=== PATIENT | female | born 1960 | race Asian ===

== ENCOUNTER 2023-01-16 12:46 | Inpatient (IN) | payer OTHER ==
[2023-01-16 13:42] LABS: BASOPHILS ABSOLUTE AUTO 0.03 K/mm3 (0.00-0.23); BASOPHILS PERCENT AUTO 1 % (0-2); EOSINOPHILS ABSOLUTE AUTO 0.06 K/mm3 (0.00-0.68); EOSINOPHILS PERCENT AUTO 1 % (0-6); Hematocrit 40.4 % (33.0-51.0); Hemoglobin 13.4 g/dL (11.5-16.0); IMMATURE GRAN ABSOLUTE AUTO 0.01 K/mm3 (0.00-0.10); IMMATURE GRAN PERCENT AUTO 0 % (0-1); LYMPHOCYTES ABSOLUTE AUTO 1.53 K/mm3 (0.84-5.20); LYMPHOCYTES PERCENT AUTO 35 % (21-46); MONOCYTES ABSOLUTE AUTO 0.25 K/mm3 (0.16-1.47); MONOCYTES PERCENT AUTO 6 % (4-13); Mean Corpuscular HGB 30.7 pg (26.0-34.0); Mean Corpuscular HGB Conc 33.2 g/dL (31.5-36.5); Mean Corpuscular Volume 92 fL (80-100); NEUTROPHILS ABSOLUTE AUTO 2.52 K/mm3 (1.96-9.15); NEUTROPHILS PERCENT AUTO 57 % (41-73); Platelet Count 206 K/mm3 (150-400); RDW Coefficient Variation 13.2 % (11.7-14.2); RDW Standard Deviation 44.8 fL (35.1-46.3); Red Blood Cell Count 4.37 M/mm3 (3.80-5.20)
[2023-01-16 14:22] LABS: Albumin, Blood 3.9 g/dL (3.4-5.0); Albumin/Globulin Ratio 1.1 (0.8-1.8); Bilirubin, Total 0.3 mg/dL (0.1-1.0); Bun/Creatinine Ratio 15.4 (12.0-20.0); Calcium, Blood 8.7 mg/dL (8.5-10.1); Creatinine, Blood 0.72 mg/dL (0.40-1.00); Globulin, Blood 3.4 g/dL (2.2-4.0); Potassium, Blood 3.8 mmol/L (3.5-5.5); Total Protein, Blood 7.3 g/dL (6.4-8.2)
[2023-01-16 18:58] LABS: C-Reactive Protein, High Sens. 0.254 mg/L (0.000-3.000); Magnesium, Blood 2.3 mg/dL (1.6-2.4); Phosphorus, Blood 3.2 mg/dL (2.5-4.9); Thyroid Stimulating Hormone 2.07 uIU/mL (0.360-4.800)
--- NOTE | 2023-01-16 20:58 | NUR ---
PT CHART REVEIWED FOR ADMISSION
[2023-01-16 22:04] VITALS: BP 130/79
--- NOTE | 2023-01-17 04:15 | NUR ---
PATIENT A/OX4, UP WITH SBA WITHIN ROOM. ADMITTED FOR R/O BOTULISM EARLY THIS SHIFT. PATIENT REPORTS INCREASED WEAKNESS, FACIAL DROOPING AND STIFF NECK WITH DIFFICULTY SWALLOWING. CURRENTLY NPO PENDING ST EVALUATION. PATIENT VERY CONCERNED ABOUT TREATMENTS, TESTING AND MEDICATIONS. DID EVENTUALLY ALLOW IV FLUIDS ONCE SHE COULD LOOK AT THE BAG AND NEW EXACTLY WHAT SHE WAS TAKING. FALL PRECAUTIONS IN PLACE DUE TO WEAKNESS, PATIENT HAS BEEN CALLING APPROPRIATELY FOR ASSISTANCE. CONTINUOUS BIOX AT BEDSIDE TO MONITOR FOR RESPIRATORY DEPRESSION, PATIENT REMAINED >95% THOUGHOUT THE SHIFT ON RA.
[2023-01-17 05:22] VITALS: BP 132/73
[2023-01-17 07:31] VITALS: BP 137/84
[2023-01-17 10:58] LABS: BASOPHILS ABSOLUTE AUTO 0.04 K/mm3 (0.00-0.23); BASOPHILS PERCENT AUTO 1 % (0-2); EOSINOPHILS ABSOLUTE AUTO 0.08 K/mm3 (0.00-0.68); EOSINOPHILS PERCENT AUTO 2 % (0-6); Hematocrit 40.1 % (33.0-51.0); Hemoglobin 13.3 g/dL (11.5-16.0); IMMATURE GRAN ABSOLUTE AUTO 0.01 K/mm3 (0.00-0.10); IMMATURE GRAN PERCENT AUTO 0 % (0-1); LYMPHOCYTES ABSOLUTE AUTO 1.37 K/mm3 (0.84-5.20); LYMPHOCYTES PERCENT AUTO 34 % (21-46); MONOCYTES PERCENT AUTO 5 % (4-13); Mean Corpuscular HGB 31.1 pg (26.0-34.0); Mean Corpuscular HGB Conc 33.2 g/dL (31.5-36.5); Mean Corpuscular Volume 94 fL (80-100); NEUTROPHILS ABSOLUTE AUTO 2.39 K/mm3 (1.96-9.15); NEUTROPHILS PERCENT AUTO 58 % (41-73); Platelet Count 190 K/mm3 (150-400); RDW Coefficient Variation 13.2 % (11.7-14.2); RDW Standard Deviation 45.1 fL (35.1-46.3); Red Blood Cell Count 4.28 M/mm3 (3.80-5.20); White Blood Cell Count 4.09 K/mm3 (4.00-11.30)
[2023-01-17 11:46] LABS: Albumin, Blood 3.6 g/dL (3.4-5.0); Albumin/Globulin Ratio 1.2 (0.8-1.8); Bilirubin, Total 0.4 mg/dL (0.1-1.0); Calcium, Blood 7.9 mg/dL (8.5-10.1); Creatinine, Blood 0.67 mg/dL (0.40-1.00); Globulin, Blood 3.1 g/dL (2.2-4.0); Potassium, Blood 3.7 mmol/L (3.5-5.5); Total Protein, Blood 6.7 g/dL (6.4-8.2)
--- NOTE | 2023-01-17 15:46 | NUR ---
patient continues to dictate her care and orders, refusing to follow npo orders for very poor swallowing, dr mcdaniel aware, patient continues to swallow and understands the outcomes
--- NOTE | 2023-01-17 16:41 | NUR ---
palliative care rn in room with patient and spouse, polst being filled out per patient request before she agrees to take the antitoxin
--- NOTE | 2023-01-17 17:26 | NUR ---
Received call from project internVALORIE Abdul in Pt's room requesting PC to assist with POLST. Pt sitting on edge of bed upon arrival. Pt's spouse is at bedside. Pt confirms wishes to complete POLST and AD. Educated on life sustaining measures including risks and implication to CPR/Intubation. Pt requests DNR. Assisted with completing POLST. Educated on advanced directive. Educated on each section to complete and choices for life support and tube feedings. Pt completes forms. Chaplain Vincent and this RN witnesses AD. Dr Abdul signs POLST. Obtained copies of forms and sent to medical records. Provided original forms back to Pt and . Pt expresses appreciation and reports no other concerns at this time. Palliative Care will remain available
--- NOTE | 2023-01-17 18:10 | NUR ---
PATIENT AND TAKE RESPONSIBILEY FOR PATIENT NOT FOLLOWING NPO ORDERS, KEEPING HER BAG AT BEDSIDE, DENIED IGNITION DEVICES, ANTITOXIN FOR BOTULISM INFUSING NOW, VSS, NO IV IRRITATION, AT BEDSIDE, INFUSING AT 60 ML/HR. POLST FILLED OUT DNR, PATIENT CONITNUALLY WANT REASSURANCE, PATIENT AND SPOUSE EDUCATED BY RN, PHARMACY AND DR AZEVEDO ABOUT THE MEDICATION AND WHY SHE NEEDED. PATIENT TO STAY ANOTHER NIGHT, CHILDLIKE WITH TANTRUMS. CALL LIGHT WITH IN REACH, WILL RELAY TO PM RN
--- NOTE | 2023-01-18 05:08 | NUR ---
PT REFUSED LABS/VITALS/INTERVENTIONS UNTIL AFTER 0630 THIS MORNING. VSS DURING AND AFTER IV ANTITOXIN MEDICATION. CHECKED ON PATIENT INTERMITTENTLY, IV NS STILL RUNNING. FIRE SAFETY REVIEWED.
[2023-01-18 07:04] LABS: BASOPHILS ABSOLUTE AUTO 0.02 K/mm3 (0.00-0.23); BASOPHILS PERCENT AUTO 0 % (0-2); EOSINOPHILS ABSOLUTE AUTO 0.08 K/mm3 (0.00-0.68); EOSINOPHILS PERCENT AUTO 1 % (0-6); Hematocrit 40.5 % (33.0-51.0); Hemoglobin 13.7 g/dL (11.5-16.0); IMMATURE GRAN ABSOLUTE AUTO 0.02 K/mm3 (0.00-0.10); IMMATURE GRAN PERCENT AUTO 0 % (0-1); LYMPHOCYTES ABSOLUTE AUTO 1.45 K/mm3 (0.84-5.20); LYMPHOCYTES PERCENT AUTO 22 % (21-46); MONOCYTES ABSOLUTE AUTO 0.33 K/mm3 (0.16-1.47); MONOCYTES PERCENT AUTO 5 % (4-13); Mean Corpuscular HGB 31.2 pg (26.0-34.0); Mean Corpuscular HGB Conc 33.8 g/dL (31.5-36.5); Mean Corpuscular Volume 92 fL (80-100); Mean Platelet Volume 9.2 fL (9.1-12.4); NEUTROPHILS ABSOLUTE AUTO 4.58 K/mm3 (1.96-9.15); NEUTROPHILS PERCENT AUTO 71 % (41-73); Platelet Count 206 K/mm3 (150-400); RDW Coefficient Variation 13.1 % (11.7-14.2); RDW Standard Deviation 44.6 fL (35.1-46.3); Red Blood Cell Count 4.39 M/mm3 (3.80-5.20); White Blood Cell Count 6.48 K/mm3 (4.00-11.30)
[2023-01-18 07:26] VITALS: BP 151/83
[2023-01-18 07:29] LABS: Very Low Density Lipoprot Chol 51 mg/dL (6-32)
[2023-01-18 07:39] LABS: Albumin, Blood 3.7 g/dL (3.4-5.0); Anion Gap 9 mmol/L (6-16); Blood Urea Nitrogen 10 mg/dL (8-24); Bun/Creatinine Ratio 15.4 (12.0-20.0); CHOL/HDL RATIO 13.9; CO2, Blood 24 mmol/L (21-32); Calcium, Blood 8.3 mg/dL (8.5-10.1); Chloride, Blood 100 mmol/L (98-108); Cholesterol 669 mg/dL (50-200); Creatinine, Blood 0.65 mg/dL (0.40-1.00); Glomerular Filtration Rate 100 (60-); Glucose, Blood 81 mg/dL (70-99); HDL Cholesterol 48 mg/dL (>39); LDL/HDL RATIO 11.9; Low Density Lipoprotein Chol 570 mg/dL (0-110); Potassium, Blood 3.9 mmol/L (3.5-5.5); Sodium, Blood 133 mmol/L (136-145); Triglycerides 256 mg/dL (30-160)
[2023-01-18 13:43] VITALS: BP 141/86
[2023-01-18 15:26] VITALS: BP 137/94
--- NOTE | 2023-01-18 17:19 | NUR ---
PT IS A/OX4, PLEASANT AND COOPERATIVE. PT IS HIGHLY ANXIOUS REGARDING ANY MEDICATIONS GIVEN TO HER. THE PT HAD A HOME MEDICATION FOUND IN HER BED THIS AFTERNOON. THE PT DENIED THAT SHE WAS TAKING ANY OF THE MEDICATION AND THE PT WOULD NOT GIVE UP THE MEDICATION TO BE LOCKED IN THE DRAWER. THE PT APPEARS TO BE BREATHING EASILY ON RA AT THIS TIME. THE PT IS UP TO THE BATHROOM WITH STAND BY ASSIST. THE PT WAS IN TO VISIT WITH HER TODAY. DR AZEVEDO REVISITED THE PT THIS AFTERNOON TO ANSWER QUESTIONS AND GIVE SUPPORT. CALL LIGHT IN REACH. WILL CONTINUE TO MONITOR AND ASSESS FOR CHANGES.
[2023-01-18 19:38] VITALS: BP 129/86
[2023-01-19 07:21] VITALS: BP 144/80
--- NOTE | 2023-01-19 07:31 | NUR ---
PT VSS ON RA, SBA TO TOILET, NS @ 50 MLS/HR, SLEPT MOST OF SHIFT. REFUSED MORNING LABS AND VITALS, WANTS CARES TO BEGIN AFTER 0630. REQUESTING TO SPEAK WITH DOCTOR REGARDING "HEAVINESS IN HER HEAD" WANTS TO ASK MD IF SHE SHOULD HAVE SECOND DOSE OF ANTITOXIN. OTHERWISE NO ACUTE CHANGES NOTED. FIRE SAFETY REVIEWED.
[2023-01-19 07:44] LABS: BASOPHILS ABSOLUTE AUTO 0.01 K/mm3 (0.00-0.23); BASOPHILS PERCENT AUTO 0 % (0-2); EOSINOPHILS ABSOLUTE AUTO 0.16 K/mm3 (0.00-0.68); EOSINOPHILS PERCENT AUTO 5 % (0-6); Hematocrit 40.9 % (33.0-51.0); Hemoglobin 13.8 g/dL (11.5-16.0); IMMATURE GRAN ABSOLUTE AUTO 0.01 K/mm3 (0.00-0.10); IMMATURE GRAN PERCENT AUTO 0 % (0-1); LYMPHOCYTES ABSOLUTE AUTO 1.09 K/mm3 (0.84-5.20); LYMPHOCYTES PERCENT AUTO 31 % (21-46); MONOCYTES ABSOLUTE AUTO 0.28 K/mm3 (0.16-1.47); MONOCYTES PERCENT AUTO 8 % (4-13); Mean Corpuscular HGB 30.7 pg (26.0-34.0); Mean Corpuscular HGB Conc 33.7 g/dL (31.5-36.5); Mean Corpuscular Volume 91 fL (80-100); Mean Platelet Volume 9.3 fL (9.1-12.4); NEUTROPHILS ABSOLUTE AUTO 1.94 K/mm3 (1.96-9.15); NEUTROPHILS PERCENT AUTO 56 % (41-73); Platelet Count 191 K/mm3 (150-400); RDW Coefficient Variation 12.9 % (11.7-14.2); RDW Standard Deviation 43.1 fL (35.1-46.3); Red Blood Cell Count 4.49 M/mm3 (3.80-5.20); White Blood Cell Count 3.49 K/mm3 (4.00-11.30)
[2023-01-19 08:37] LABS: Albumin, Blood 3.5 g/dL (3.4-5.0); Anion Gap 7 mmol/L (6-16); Blood Urea Nitrogen 8 mg/dL (8-24); Bun/Creatinine Ratio 12.8 (12.0-20.0); CO2, Blood 26 mmol/L (21-32); Calcium, Blood 8.4 mg/dL (8.5-10.1); Chloride, Blood 99 mmol/L (98-108); Creatinine, Blood 0.63 mg/dL (0.40-1.00); Glomerular Filtration Rate 101 (60-); Glucose, Blood 91 mg/dL (70-99); Magnesium, Blood 2.2 mg/dL (1.6-2.4); Phosphorus, Blood 1.9 mg/dL (2.5-4.9); Sodium, Blood 132 mmol/L (136-145)
[2023-01-19 16:08] VITALS: BP 147/88
--- NOTE | 2023-01-19 18:34 | NUR ---
PT PLEASANT TODAY. THERE IS A DIFFERENCE IN CULTURE. PT STATES EATING A FERMENTED RAW MEAT KETO DIET. DOES EAT BOILED EGGS. DISCUSSED CLEAR DIET TODAY. ALSO WILL LOOK AT NEW SWALLOW EVAL TOMORROW WITH SCRAMBLED EGGS PER SPEACH EVDANA. IN TO VISIT TODAY. DR REQUEST NO EATING ANY FOODS NOT FRESH TODYA. NOTHING NOT MADE TODAY. PT STATES COMPLIANCE. NO OTHER CONCERNS NOTED. BED IN LOW POSITION, CALL LITE IN REACH, CALLS APPROP
[2023-01-19 20:02] VITALS: BP 141/83
--- NOTE | 2023-01-19 22:06 | NUR ---
ROUNDING NOTE DURING 1999 ROUNDING PATIENT STATES "SHE DOES NOT WANT TO BE BOTHERED BEFORE 0630 WITH ANYTHING". SHE STATES "I AM REFUSING ANY CARE, THAT SHE WILL NOT TONIGHT, SHE DOES NOT WANT ANYONE TO COME AND DISTURB HER BEFORE 0630, NO BLOOD PRESSURES, LAB DRAWS OR ANYTHING UNLESS ABSOLUTELY NECESSARY". THIS RN ASKED PATIENT IF IT WOULD BE ALRIGHT TO OPEN THE DOOR AND CHECK TO MAKE SURE THAT SHE WAS BREATHING, PT SAID "NO, SHE IS REFUSING EVERYTHING UNTIL THE MORNING AND THAT SHE WILL CALL IF SHE NEEDS ANYTHING BUT SHE WONT NEED ANYTHING".
--- NOTE | 2023-01-20 04:44 | NUR ---
SHIFT SUMMARY PATIENT OF PLEASANT AFFECT WITH IRRITABILITY AT TIMES, ALERT AND ORIENTED TO PERSON, PLACE, SITUATION, AND SELF. PATIENT REFUSED CARE FOLLOWING MEDS AND SHIFT ASSESSMENT, SEE PREVIOUS NOTE. ABLE TO ROUND TWICE ON PATIENT; PATIENTS RESPIRATIONS WERE EQUAL AND UNLABORED. PATIENT CALLED ONCE THIS SHIFT FOR A BLANKET AROUND 0230. PATIENT DENIES CHEST PAIN/PRESSURE. PATIENT IS ABLE TO MAKE HER NEEDS KNOWN AND CALLS APPROPRIATELY. BED IS IN THE LOWEST POSITION, CALL LIGHT IS WITHIN REACH. NO ACUTE CHANGES NOTED AT THIS TIME.
[2023-01-20 07:04] LABS: BASOPHILS ABSOLUTE AUTO 0.03 K/mm3 (0.00-0.23); BASOPHILS PERCENT AUTO 1 % (0-2); EOSINOPHILS ABSOLUTE AUTO 0.22 K/mm3 (0.00-0.68); EOSINOPHILS PERCENT AUTO 5 % (0-6); Hematocrit 40.8 % (33.0-51.0); Hemoglobin 13.9 g/dL (11.5-16.0); IMMATURE GRAN ABSOLUTE AUTO 0.01 K/mm3 (0.00-0.10); IMMATURE GRAN PERCENT AUTO 0 % (0-1); LYMPHOCYTES ABSOLUTE AUTO 2.03 K/mm3 (0.84-5.20); LYMPHOCYTES PERCENT AUTO 41 % (21-46); MONOCYTES ABSOLUTE AUTO 0.39 K/mm3 (0.16-1.47); MONOCYTES PERCENT AUTO 8 % (4-13); Mean Corpuscular HGB 30.8 pg (26.0-34.0); Mean Corpuscular HGB Conc 34.1 g/dL (31.5-36.5); Mean Corpuscular Volume 91 fL (80-100); Mean Platelet Volume 9.1 fL (9.1-12.4); NEUTROPHILS ABSOLUTE AUTO 2.25 K/mm3 (1.96-9.15); NEUTROPHILS PERCENT AUTO 46 % (41-73); Platelet Count 211 K/mm3 (150-400); RDW Coefficient Variation 12.7 % (11.7-14.2); RDW Standard Deviation 42.3 fL (35.1-46.3); Red Blood Cell Count 4.51 M/mm3 (3.80-5.20); White Blood Cell Count 4.93 K/mm3 (4.00-11.30)
[2023-01-20 07:25] LABS: Albumin, Blood 3.7 g/dL (3.4-5.0); Anion Gap 8 mmol/L (6-16); Blood Urea Nitrogen 9 mg/dL (8-24); Bun/Creatinine Ratio 13.8 (12.0-20.0); CO2, Blood 26 mmol/L (21-32); Calcium, Blood 8.5 mg/dL (8.5-10.1); Chloride, Blood 98 mmol/L (98-108); Creatinine, Blood 0.65 mg/dL (0.40-1.00); Glomerular Filtration Rate 100 (60-); Glucose, Blood 90 mg/dL (70-99); Phosphorus, Blood 2.5 mg/dL (2.5-4.9); Potassium, Blood 3.6 mmol/L (3.5-5.5); Sodium, Blood 132 mmol/L (136-145)
[2023-01-20 07:52] VITALS: BP 130/89
--- NOTE | 2023-01-20 12:47 | NUR ---
DISCHARGE REVIEWED WITH PT AND SPOUSE WITH HER VERBAL PERMISSION. IV PULLED INTACT. NO TELE. PT VERBALIZED UNDERSTANDING INSTRUCTIONS. PT NOT ACCEPTING THAT I CANNOT HAND HER MRI AND FULL MEDICAL RECORDS. I EXPLAINED I DO NOT HAVE THESE TO PRINT FOR HER, SHE CONTINUED TO TELL ME I DO. EDUCATED HER I DO NOT. AND GAVE HER PHONE NUMBER TO MEDICAL RECORDS. I EXPRESSED SHE SHOULD CALL ON SUNDAY TO START PROCESS. PRINTED [facility] FROM DISCHARGE FORM. PT ARGUED THAT DOES NOT KNOW DR GIVEN AT DISCHARGE. EXPLAINED THIS IS WHAT HAS BEEN OFFERED TO HER, NO LOCAL DR [facility]AIL PER HER ADMISSION. EXPRESSED DR RECOMMENDATION TO GO TO DR AND GET FOLLOWUP RECOMMENDED. PT AMBULATED SELF WITH CONTACT LENS TECHNICIAN MEGAN FOLLOWING TO DOOR. LEFT ROOM AT 1250.
== END 2023-01-20 12:48 | disposition home or self-care (01) | DRG 868 ==
LOC: ER 12:46 → MEDS 12:47
PROVIDERS: Emergency Medicine; Family Medicine; Student in an Organized Health Care Education/Training Program; ADMIT Internal Medicine
DX: A05.1 Botulism food poisoning (principal); E87.1 Hypo-osmolality and hyponatremia; M62.82 Rhabdomyolysis; H02.403 Unspecified ptosis of bilateral eyelids; H05.20 Unspecified exophthalmos; Z87.820 Personal history of traumatic brain injury; R13.10 Dysphagia, unspecified; M48.03 Spinal stenosis, cervicothoracic region; R47.81 Slurred speech; E83.39 Other disorders of phosphorus metabolism; E78.5 Hyperlipidemia, unspecified; Z66 Do not resuscitate; Z51.5 Encounter for palliative care; Z98.890 Other specified postprocedural states
CPT/HCPCS: 36415; 70551; 72141; 80053; 80061; 80069; 82550; 82607; 82746; 82947; 83036; 83735; 84100; 84443; 85025; 85651; 86141; 92526; 92610; 93005; 93010; 94762; 96360; 96361; 97110; 97165; 99284-25; A9270; G0378; J7030; J7050; J7060

== ENCOUNTER 2023-04-17 14:13 | Emergency (ER) | payer OTHER ==
[~2023-04-17] VITALS: Ht 170.2 cm; Wt 59.0 kg
[2023-04-17 19:39] LABS: BASOPHILS ABSOLUTE AUTO 0.03 K/mm3 (0.00-0.23); BASOPHILS PERCENT AUTO 1 % (0-2); EOSINOPHILS ABSOLUTE AUTO 0.08 K/mm3 (0.00-0.68); EOSINOPHILS PERCENT AUTO 2 % (0-6); Hemoglobin 13.2 g/dL (11.5-16.0); IMMATURE GRAN ABSOLUTE AUTO 0.01 K/mm3 (0.00-0.10); IMMATURE GRAN PERCENT AUTO 0 % (0-1); LYMPHOCYTES ABSOLUTE AUTO 1.88 K/mm3 (0.84-5.20); LYMPHOCYTES PERCENT AUTO 42 % (21-46); MONOCYTES ABSOLUTE AUTO 0.43 K/mm3 (0.16-1.47); MONOCYTES PERCENT AUTO 10 % (4-13); Mean Corpuscular HGB 31.8 pg (26.0-34.0); Mean Corpuscular Volume 96 fL (80-100); Mean Platelet Volume 9.1 fL (9.1-12.4); NEUTROPHILS ABSOLUTE AUTO 2.08 K/mm3 (1.96-9.15); NEUTROPHILS PERCENT AUTO 46 % (41-73); Platelet Count 196 K/mm3 (150-400); RDW Coefficient Variation 13.9 % (11.7-14.2); RDW Standard Deviation 49.1 fL (35.1-46.3); Red Blood Cell Count 4.15 M/mm3 (3.80-5.20); White Blood Cell Count 4.51 K/mm3 (4.00-11.30)
[2023-04-17 20:14] LABS: Albumin, Blood 3.9 g/dL (3.4-5.0); Albumin/Globulin Ratio 1.1 (0.8-1.8); Bilirubin, Total 0.3 mg/dL (0.1-1.0); Bun/Creatinine Ratio 20.9 (12.0-20.0); Calcium, Blood 8.7 mg/dL (8.5-10.1); Creatinine, Blood 0.62 mg/dL (0.40-1.00); Globulin, Blood 3.7 g/dL (2.2-4.0); Magnesium, Blood 2.5 mg/dL (1.6-2.4); Thyroid Stimulating Hormone 3.43 uIU/mL (0.360-4.800); Total Protein, Blood 7.6 g/dL (6.4-8.2)
[2023-04-17 20:54] LABS: Influenza A, PCR NEGATIVE (NEGATIVE); Influenza B, PCR NEGATIVE (NEGATIVE); Resp Syncytial Virus, PCR NEGATIVE (NEGATIVE); SARS-Cov-2 (COVID-19) PCR, MMC NEGATIVE (NEGATIVE)
[2023-04-17 23:40] VITALS: BP 120/74
== END 2023-04-17 23:50 | disposition home or self-care (01) ==
LOC: ER 14:13
PROVIDERS: Student in an Organized Health Care Education/Training Program
DX: H02.402 Unspecified ptosis of left eyelid (principal); R20.0 Anesthesia of skin; R53.1 Weakness; I10 Essential (primary) hypertension; Z11.52 Encounter for screening for COVID-19
CPT/HCPCS: 0241U; 80053; 83519; 83735; 84443; 84484; 85025; 93005; 93010; 99283-25

== ENCOUNTER 2023-04-18 13:24 | Observation (INO) | payer BC, OTHER ==
[~2023-04-18] VITALS: Ht 170.2 cm; Wt 62.8 kg
[2023-04-18 13:55] LABS: BASOPHILS ABSOLUTE AUTO 0.03 K/mm3 (0.00-0.23); BASOPHILS PERCENT AUTO 1 % (0-2); EOSINOPHILS ABSOLUTE AUTO 0.07 K/mm3 (0.00-0.68); EOSINOPHILS PERCENT AUTO 2 % (0-6); Hemoglobin 13.7 g/dL (11.5-16.0); IMMATURE GRAN PERCENT AUTO 0 % (0-1); LYMPHOCYTES ABSOLUTE AUTO 1.54 K/mm3 (0.84-5.20); LYMPHOCYTES PERCENT AUTO 37 % (21-46); MONOCYTES PERCENT AUTO 7 % (4-13); Mean Corpuscular HGB 31.1 pg (26.0-34.0); Mean Corpuscular HGB Conc 32.6 g/dL (31.5-36.5); Mean Corpuscular Volume 96 fL (80-100); Mean Platelet Volume 9.3 fL (9.1-12.4); NEUTROPHILS ABSOLUTE AUTO 2.22 K/mm3 (1.96-9.15); NEUTROPHILS PERCENT AUTO 53 % (41-73); Platelet Count 205 K/mm3 (150-400); RDW Coefficient Variation 13.6 % (11.7-14.2); RDW Standard Deviation 47.9 fL (35.1-46.3); White Blood Cell Count 4.16 K/mm3 (4.00-11.30)
[2023-04-18 14:15] LABS: Bilirubin, Total 0.3 mg/dL (0.1-1.0); Bun/Creatinine Ratio 19.7 (12.0-20.0); Calcium, Blood 9.2 mg/dL (8.5-10.1); Creatinine, Blood 0.71 mg/dL (0.40-1.00); Potassium, Blood 3.8 mmol/L (3.5-5.5)
[2023-04-18] MEDS ORDERED: FLU VACC QS2023-24(6MOS UP)/PF 60 MCG/0.5 ML SYRINGE IM SCH (19:45)
[2023-04-18] MEDS ORDERED: Ondansetron HCl 2 MG / ML 2ML Vial IV PRN (19:45)
[2023-04-18 22:13] VITALS: BP 149/98
--- NOTE | 2023-04-18 22:40 | NUR ---
PATIENT IS A NEW ADMIT FROM THE ED. AXOX 4 AND SELF TRANFER FROM W/C TO BED. REPORTS SHE WORKS OUT DOING OVER A HUNDRED SQUATS AND 22 # KETTLE BALL SWING WITH UP TO 400 REPS IN A WORKOUT. THE LAST 4 DAYS SHE CAN ONLY DO 10 SQUATS, AIRCRAFT REFUELER ARE STRONG AND EQUAL BUT SAID THEY ARE NORMALLY WAY STRONGER. PATIENT NOT ALLOWING ACCESSMENT OF PUPILS, TURNING HER HEAD AND CLOSING EYE LIDS. SHE REPORTS HER SPEECH IS NORMALLY CLEARER THAN WHAT SHE PRESENT. SHE SAID SHE HAS V[place]ZUELAN ACCENT. DENIES CHEST PAIN, SOB, AND N/V. ORIENTED TO ROOM AND CALL LIGHT SYSTEM. SHE WANTS TV LEFT OFF AFTER ASSESSMENT. TM.
--- NOTE | 2023-04-19 04:08 | NUR ---
SHIFT SUMMARY PATIENT HAD NO ACUTE CHANGES. AXOX 4 AND INDEPENDENT IN ROOM. NO NEURO DEFICITS OBSERVED. ALTHOUGH PATIENT THOUGH HER SPEECH IS NORMALLY CLEARER. REPORTS MONTSERRATIAN ACCENT. DENIES CHEST PAIN, SOB, AND N/V. ON ROOM AIR. PIV REMAINS INTACT. REPORTS HER HAD NO S/SX SHE DID AND COOKS HIS FOOD THROUGHLY. SLEPT AFTER ASSESSMENT. CALL LIGHT IN REACH. BED IN LOWEST POSITION. WILL CONTINUE TO MONITOR UNTIL DAY SHIFT NURSE ASSUMES CARE.
[2023-04-19 05:16] VITALS: BP 125/79
[2023-04-19 05:58] LABS: CHOL/HDL RATIO 12.4; Cholesterol 584 mg/dL (50-200); HDL Cholesterol 47 mg/dL (>39); LDL/HDL RATIO 10.5; Low Density Lipoprotein Chol 493 mg/dL (0-110); Triglycerides 219 mg/dL (30-160); Very Low Density Lipoprot Chol 43 mg/dL (6-32)
[2023-04-19 07:56] VITALS: BP 151/98
[2023-04-19] MEDS ORDERED: Enoxaparin 40 MG/0.4 ML SYR SC SCH (09:00)
--- NOTE | 2023-04-19 11:08 | NUR ---
0800 NEUROCHECK. PT IS ALERT AND ORIENTED X4. VERY ANXIOUS. REPORTS EYE IS ONLY ABLE TO OPEN 50%. YESTERDAY SHE REPORTS 30%. DENIES CHEST PAIN AND SOB. REPORTS BEING MUCH WEAKER THAN HER BASELINE. PROVIDER AWARE.
[2023-04-19 14:31] VITALS: BP 142/89
--- NOTE | 2023-04-19 17:44 | NUR ---
NEURO CHECK 1200- NO CHANGES. ALERT AND ORIENTED X4. NO NEW C/O OF SYMPTOMS. NO WORSENING OF SYMPTOMS .
--- NOTE | 2023-04-19 17:45 | NUR ---
NEURO CHECK 1600- NO CHANGES. ALERT AND ORIENTED X4. ANXIOUS. NO NEW OR WORSENING SYMPTOMS
--- NOTE | 2023-04-19 18:09 | NUR ---
PT IS ALERT AND ORIENTED X 4. ANXIOUS. NO WORSENING OF ANY SYMPTOMS. PT IS WEAK, INDEPENDENT IN THE ROOM. COOPERATIVE. MRI ORDERED THIS EVENING. NO ACUTE CHANGES TO REPORT. PO INTAKE IS MINIMAL. CONSULTED [employer] DRAWER.
[2023-04-19 19:19] VITALS: BP 141/81
--- NOTE | 2023-04-20 04:25 | NUR ---
SHIFT SUMMARY PATIENT HAD NO ACUTE CHANGES. AXOX 4 AND INDEPENDENT IN ROOM. NO NEURO CHANGES. REPORTED WANTS TO SLEEP EARLY AFTER ASSESSMENT. DENIES CHEST PAIN, SOB, AND N/V. VSS/AFEBRILE. PIV REMAINS INTACT. COOPERATIVE WITH CARE. CALL LIGHT IN REACH. BED IN LOWEST POSITION. WILL CONTINUE TO MONITOR UNTIL DAY SHIFT NURSE ASSUMES CARE.
[2023-04-20 05:09] VITALS: BP 119/75
[2023-04-20 07:41] VITALS: BP 142/84
[2023-04-20 14:05] VITALS: BP 132/87
[2023-04-20] MEDS ORDERED: Bisacodyl 10 MG Supp PR PRN (15:45)
--- NOTE | 2023-04-20 18:37 | NUR ---
DR ARELLANO SPOKE TO THE PT ABOUT THE RISK OF TREATMENT DR CAME TO THE PT BEDSIDE AND SPOKE TO HER AT LENGTH EARLIER TODAY ABOUT THE RISKS OF THE ANTI-TOXIN TREATMENT, SPOUSE WAS PRESENT AND PARTICIPATED IN THE DISCUSSION. BOTH SEEMED TO UNDERSTAND. PT INDICATED SHE WANTS TO PROCEED WITH TREATMENT.
[2023-04-20 19:43] VITALS: BP 145/89
--- NOTE | 2023-04-20 19:48 | NUR ---
SHIFT SUMMARY- PT ALERT AND ORINETED, INDEPENDENT TO THE BATHROOM. PT STATES HER SYMPTOMS HAVE WORSENED A BIT TODAY COMPARED TO YESTERDAY, THIS RN WAS NOT CARING FOR HER YESTERDAY AND CAN NOT CONFIRM THIS. PT IS CURRENTLY IN BED, CALL LIGHT IN REACH. HAS STARTED THE BALL ROLLING TO GET THE ANTI-TOXIN ORDERED FROM THE [facility]. PT NEEDS A STOOL AND BLOOD SAMPLE PRIOR TO INFUSION. LAB CALLED THIS EVENING TO SAY THE STOOL SAMPLE SHOULD BE COLLECTED ON SUNDAY IF POSSIBLE, BUT IT MUST BE BEFORE THE INFUSION. SPOKE TO LAB ABOUT COLLECTING A STOOL AND THEN SENDING A DIFFERENT SAMPLE LATER IF THERE IS A NEWER SAMPLE. THIS WOULD BE THE BEST WAY TO ENSURE A SAMPLE IS COLLECTED PRIOR TO THE INFUSION AND THE MOST RECENT SAMPLET CAN BE SENT TO THE CDC FOR THEIR TESTING NEEDS. PASSED ON TO CRUISE COUNSELOR AND NIGHT RN.
--- NOTE | 2023-04-21 07:44 | NUR ---
SHIFT SUMMERY PATIENT A/Ox4, PLEASANT AFFECT, TALKATIVE. NO NOTICEABLE SLURRED SPEECH. NO NEURO CHANGES. PATIENT WAS ABLE TO PROVIDE STOOL SAMPLE, DID NOT NEED ENEMA, SAMPLE SENT TO LAB. INDEPENDENT IN ROOM. NO ACUTE CHANGES NOTED OVERNIGHT. BED LOCKED, CALL LIGHT WITHIN REACH.
[2023-04-21 08:06] VITALS: BP 123/76
[2023-04-21] MEDS ORDERED: NS 250 ML IV PRN (09:40)
[2023-04-21] MEDS ORDERED: NS IV ONE (09:55)
--- NOTE | 2023-04-21 13:27 | NUR ---
Patient had blood & stool sample sent to the lab. MD at bedside, assessed patient before starting anti-toxin IVF. Patient alert & oriented x4, unable to assess pupil dilation (patient kept eyes closed). Right hand synchronizer appears weaker compared to left hand. Patient reports, "I feel weak, its starting at my head and progressing downward". Lungs sounds clear, heart rate regular. Patient independent in the room, steady gait. Started IVF, RN at bedside no s/sx of reaction noted. Patient denies symptoms. IVF completed at 1215.
[2023-04-21 15:38] VITALS: BP 130/81
--- NOTE | 2023-04-21 16:52 | NUR ---
DAYSHIFT SUMMARY Patient resting comfortably after completing antitoxin IVF. No s/sx reactions observed, patient reported feeling much better, she stated " the medication worked, my eyelids are less droppy than yesterday". RT came to do assess on patient, patient asked nurse if the MD can cancel the breathing tests, she siad "I don't feel like I need that, I feel better". VSS. Will continue plan of care.
[2023-04-21 20:02] VITALS: BP 141/84
--- NOTE | 2023-04-22 04:06 | NUR ---
SHIFT SUMMARY PATIENT A/Ox4, PLEASANT/COOPERATIVE. NO NEURO CHANGES NOTED. PATIENT STATES ANTITOXIN INFUSION HAS WORKED WELL, IS FEELING MUCH BETTER. INDEPENDENT IN ROOM. NO ACUTE CHANGES NOTED OVERNIGHT. BED LOCKED, CALL LIGHT WITHIN REACH.
[2023-04-22 07:49] VITALS: BP 117/89
[2023-04-22 16:09] VITALS: BP 131/76
--- NOTE | 2023-04-22 18:23 | NUR ---
SHIFT SUMMARY: PT A&O X4. PT VERY ANXIOUS THIS AM D/T NOT RECEIVING ENTIRE AMOUNT OF ANTI-TOXIN. VERY SMALL AMOUNT LEFT IN BAG FROM YESTERDAY. PT CALLED HOSPITAL PHARM[facility] TWICE THIS SHIFT. RADIOLOGICAL TECHNICIAN SPENT TIME IN PT ROOM ATTEMPTING TO DISCUSS CONCERNS. PT PLEASANT COOPERATIVE REST OF SHIFT. PT STATES SHE IS FEELING MUCH BETTER TODAY COMPARED TO YESTERDAY. CALL LIGHT IN REACH. BED IN LOWEST POSITION.
[2023-04-22 19:56] VITALS: BP 115/71
[2023-04-23 07:24] VITALS: BP 121/85
--- NOTE | 2023-04-23 08:29 | NUR ---
SHIFT SUMMARY PATIENT A/Ox4, PLEASANT AFFECT, DENIES PAIN. PATIENT ENDORSED FEELING MUCH BETTER BUT IS NOW CONCERNED ABOUT EXPERIENCING, " SOMETHING COMING BACK UP MY THROAT WHENEVER I LAY DOWN." WHEN ASKED IF HAVING ACID REFLUX, PATIENT DENIED, STATED THAT IT IS SOMETHING ELSE AND THAT SHE IS WORRIED ABOUT INHALING IT INTO HER LUNGS AND CHOKING AND DYING. PATIENT BECAME SOMEWHAT GRANDIOSE WITH SOMATIC COMPLAINTS. ODD PRESENTATION OVERALL. INDEPENDENT IN ROOM. NO ACUTE CHANGES NOTED OVERNIGHT. BED LOCKED, CALL LIGHT WITHIN REACH.
[2023-04-23 10:23] LABS: Albumin/Globulin Ratio 1.1 (0.8-1.8); Bilirubin, Total 0.4 mg/dL (0.1-1.0); Bun/Creatinine Ratio 12.9 (12.0-20.0); Calcium, Blood 9.3 mg/dL (8.5-10.1); Creatinine, Blood 0.7 mg/dL (0.40-1.00); Globulin, Blood 3.7 g/dL (2.2-4.0); Total Protein, Blood 7.7 g/dL (6.4-8.2)
--- NOTE | 2023-04-23 14:38 | NUR ---
DISCHARGED AT 1328 PT EDUCATED ON THE IMPORTANCE OF ESTABLISHING A PCP AND FOLLOWING UP WITH A NEUROLOGIST. PT STATES "I WILL THINK ABOUT IT". NO NEW MEDS PRESCRIBED. PT EDCUATED TO STOP EATING RAW FOODS. PT SHOWN HOW TO ACCESS MEDICAL RECORDS AND CREATE A PATIENT PORTAL. PT THANKFUL FOR CARE. WHEELED OUT OF THE HOSPITAL AND DRIVEN HOME BY . PT RELUCTANT TO EDUCATION PROVIDED BY NURSE AND MD. STATES SHE HAS NO FURTHER QUESTIONS PRIOR TO DC HOWEVER. IV REMOVED & INTACT.
== END 2023-04-23 13:28 | disposition home or self-care (01) ==
LOC: ER 13:24 → MEDS 13:25
PROVIDERS: Physician Assistant; ADMIT Internal Medicine
DX: A05.1 Botulism food poisoning (principal); M48.02 Spinal stenosis, cervical region; E78.5 Hyperlipidemia, unspecified; R47.81 Slurred speech
CPT/HCPCS: 36415; 70551; 80053; 80061; 83735; 85025; 94760; 97110; 97116; 97162; 97530; 99285-25; G0378; J7050